=== PATIENT | male | born 1965 ===

== ENCOUNTER 2016-08-24 05:53 | Emergency (ER) | payer MEDICAID, OTHER ==
[2016-08-24 06:11] VITALS: BP 122/78; PULSE 88; RESP 18; TEMP 98.1; O2SAT 98
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
--- NOTE | 2016-08-24 19:29 | CARD ---
APPROVED REPORT EKG Measurement Heart [id number] <Conclusion> Normal sinus rhythm Minimal voltage criteria for LVH, may be normal variant Borderline ECG
== END 2016-08-24 06:45 | disposition home or self-care (01) ==
LOC: H.ER 05:53
DX: R42 Dizziness and giddiness (principal); E78.00 Pure hypercholesterolemia, unspecified; I50.9 Heart failure, unspecified; I11.0 Hypertensive heart disease with heart failure; Z79.82 Long term (current) use of aspirin